=== PATIENT | male | born 1990 | race Caucasian/White ===

== ENCOUNTER 2025-05-27 16:27 | Inpatient (IN) | payer MEDICAID ==
[~2025-05-27] VITALS: Ht 165.1 cm; Wt 75.0 kg
[2025-05-27 17:02] LABS: PLATELET COUNT (AUTO) 247 K/uL (150-450); RED BLOOD CELL COUNT(AUTO) 4.04 MIL/uL (4.50-5.90); RED CELL DISTRIBUTION WIDTH 12.4 % (11.5-14.5); WHITE BLOOD COUNT (AUTO) 19.1 K/uL (4.5-11.0)
[2025-05-27 17:13] LABS: CALCIUM, TOTAL 8.9 mg/dL (8.8-10.5); CREATININE 0.56 mg/dL (0.60-1.30); GLOMERULAR FILTR. RATE CALC > 60 mL/min (>60); GLUCOSE,RANDOM 114 mg/dL (70-110); SODIUM SERUM 129 mmol/L (136-145); UREA NITROGEN, BLOOD 5 mg/dL (7-18)
[2025-05-27] MEDS: SODIUM CHLORIDE 0.9% 2,250 ML IV ONE (17:26)
[2025-05-27 17:31] LABS: APPEARANCE,URINE CLEAR (CLEAR); GLUCOSE, URINE (UA) NEGATIVE (NEGATIVE); LEUKOCYTE ESTERASE ,URINE NEGATIVE (NEGATIVE); NITRATE,URINE NEGATIVE (NEGATIVE); OCCULT BLOOD,URINE NEGATIVE (NEGATIVE); SPECIFIC GRAVITIY, URINE 1.012 (1.003-1.030)
[2025-05-27 17:38] LABS: ASPARTATE AMINOTRANSFERASE 41 U/L (15-37); TOTAL PROTEIN, SERUM 8.5 g/dL (6.4-8.2)
[2025-05-27 17:40] LABS: TROPONIN I-HIGH SENSITIVITY 4 ng/L (<76)
[2025-05-27] MEDS ORDERED: SODIUM CHLORIDE 0.9% 100 ML ONE (17:59)
[2025-05-27] MEDS ORDERED: 0.9% SODIUM CHLORIDE 10 ML SYRINGE IVP ONE (17:59)
[2025-05-27] MEDS ORDERED: IOHEXOL 350 MG/ML 100 ML VIAL ONE (17:59)
[2025-05-27 18:06] LABS: INFLUENZA TYPE A NEGATIVE FOR TYPE A (NEGATIVE); INFLUENZA TYPE B NEGATIVE FOR TYPE B (NEGATIVE)
[2025-05-27] MEDS: ONDANSETRON HCL 4 MG/2 ML VIAL IVP ONE (18:12)
[2025-05-27] MEDS: KETOROLAC TROMETHAMINE 30 MG/ML VIAL IVP ONE (18:12)
[2025-05-27] MEDS: ACETAMINOPHEN 1000 MG/ISO-OSM 100 ML IV ONE (18:13)
[2025-05-27 18:14] LABS: LACTIC ACID 1.0 mmol/L (0.4-2.0)
[2025-05-27] MEDS ORDERED: SODIUM CHLORIDE 0.9% 250 ML IV ONE (20:27)
[2025-05-27] MEDS: CefTRIAXone 1 GM/DEXTROSE 50 ML IV ONE (20:28)
[2025-05-27] MEDS: MetroNIDAZOLE 500 MG/NACL 100 ML IV ONE (20:47)
[2025-05-27] MEDS ORDERED: GADOTERATE MEGLUMINE 10 MMOL/20 ML VIAL IVP ONE (21:02)
[2025-05-27] MEDS ORDERED: BISACODYL 10 MG RECTAL RECTAL SUPPOSITORY PR PRN (21:15)
[2025-05-27] MEDS ORDERED: ONDANSETRON HCL 4 MG/2 ML VIAL IVP PRN (21:15)
[2025-05-27] MEDS ORDERED: MAGNESIUM HYDROXIDE SUSPENSION 30 ML UDCUP PO PRN (21:15)
[2025-05-27] MEDS ORDERED: ZOLPIDEM TARTRATE 5 MG TABLET PO PRN (21:15)
[2025-05-27] MEDS ORDERED: MORPHINE SULFATE 4 MG/ML SYRINGE IVP PRN (21:15)
[2025-05-27] MEDS: DOXYCYCLINE HYCLATE 100 MG in DEXTROSE 5%-WATER 100 ML IV ONE (22:29)
[2025-05-27] MEDS: ACETAMINOPHEN 325 MG TABLET PO PRN (22:33)
[2025-05-27] MEDS: SODIUM CHLORIDE 0.9% 1,000 ML IV ONE (22:34)
[2025-05-27] MEDS: HEPARIN SODIUM,PORCINE 5,000 UNITS/ML VIAL SQ SCH (23:38)
[2025-05-28] VITALS (7 sets, daily range): BP systolic 100–140; BP diastolic 52–86; PULSE 93–116; RESP 17–19; TEMP 98.8–103.1; O2SAT 97–99
[2025-05-28] MEDS: PIPERACILLIN/TAZO 3.375 GM/D5W 50 ML IV SCH (05:17)
[2025-05-28 05:20] LABS: PLATELET COUNT (AUTO) 227 K/uL (150-450); RED BLOOD CELL COUNT(AUTO) 3.82 MIL/uL (4.50-5.90); RED CELL DISTRIBUTION WIDTH 12.3 % (11.5-14.5); WHITE BLOOD COUNT (AUTO) 15.9 K/uL (4.5-11.0)
[2025-05-28 05:28] LABS: CALCIUM, TOTAL 7.8 mg/dL (8.8-10.5); CREATININE 0.66 mg/dL (0.60-1.30); GLOMERULAR FILTR. RATE CALC > 60 mL/min (>60); GLUCOSE,RANDOM 100 mg/dL (70-110); SODIUM SERUM 133 mmol/L (136-145); UREA NITROGEN, BLOOD 6 mg/dL (7-18)
[2025-05-28] MEDS: DOCUSATE SODIUM 100 MG CAPSULE PO SCH (09:00)
[2025-05-28] MEDS: PANTOPRAZOLE SODIUM 40 MG DR TABLET PO SCH (09:00)
[2025-05-28] MEDS ORDERED: FentaNYL CITRATE PF 100 MCG/2 ML VIAL ONE (09:18)
[2025-05-28] MEDS ORDERED: LIDOCAINE/PF 1% 30 ML VIAL ONE (09:18)
[2025-05-28] MEDS ORDERED: MIDAZOLAM HCL 2 MG/2 ML VIAL ONE (09:18)
[2025-05-28] MEDS ORDERED: FentaNYL CITRATE PF 100 MCG/2 ML VIAL IVP ONE ×2 (10:00)
[2025-05-28] MEDS ORDERED: MIDAZOLAM HCL 2 MG/2 ML VIAL IVP ONE ×2 (10:00)
[2025-05-28 11:26] LABS: SPECIMENTYPE,BODY FLUID ASPV
[2025-05-28 13:12] LABS: APPEARANCE,SPUN,BODY FLUID CLOUDY (CLEAR); APPEARANCE,UNSPUN,BODY FLUID TURBID (CLEAR)
[2025-05-28 13:13] LABS: BASOPHILS,BODY FLUID 0 %; BODY FLUID RBC 5000.0 /cu. mm.; COLOR,BODY FLUID BROWN (LT YELLOW); EOSINOPHILS,BF (ANAL) 0 %; LYMPHOCYTES,BODY FLUID 0 %; MONOCYTES,BODY FLUID 0 %; NEUTROPHILS,BODY FLUID 100 %; TOTAL VOLUME,BODY FLUID 0.5 mL; WBC, BODY FLUID 21188 /cu. mm.
[2025-05-28 14:34] LABS: APPEARANCE,URINE CLEAR (CLEAR); GLUCOSE, URINE (UA) NEGATIVE (NEGATIVE); LEUKOCYTE ESTERASE ,URINE NEGATIVE (NEGATIVE); NITRATE,URINE NEGATIVE (NEGATIVE); OCCULT BLOOD,URINE NEGATIVE (NEGATIVE); SPECIFIC GRAVITIY, URINE 1.012 (1.003-1.030)
[2025-05-28] MEDS: ACETAMINOPHEN 500 MG/ISO-OSM 50 ML IV ONE (17:07)
[2025-05-28] MEDS ORDERED: SODIUM CHLORIDE 0.9% 500 ML IV ONE (17:09)
[2025-05-29 03:19] VITALS: BP 111/70; PULSE 81; RESP 18; TEMP 99; O2SAT 100
[2025-05-29] MEDS ORDERED: SODIUM CHLORIDE 0.9% 500 ML IV ONE (04:55)
[2025-05-29 06:46] LABS: PLATELET COUNT (AUTO) 213 K/uL (150-450); RED BLOOD CELL COUNT(AUTO) 3.77 MIL/uL (4.50-5.90); RED CELL DISTRIBUTION WIDTH 12.6 % (11.5-14.5); WHITE BLOOD COUNT (AUTO) 9.0 K/uL (4.5-11.0)
[2025-05-29 06:47] LABS: CALCIUM, TOTAL 8.2 mg/dL (8.8-10.5); CREATININE 0.57 mg/dL (0.60-1.30); GLOMERULAR FILTR. RATE CALC > 60 mL/min (>60); GLUCOSE,RANDOM 104 mg/dL (70-110); SODIUM SERUM 135 mmol/L (136-145); UREA NITROGEN, BLOOD 6 mg/dL (7-18)
[2025-05-29 08:22] VITALS: BP 109/73; PULSE 87; RESP 17; TEMP 98.4; O2SAT 98
[2025-05-29 12:16] VITALS: BP 113/80; PULSE 90; RESP 17; TEMP 98.6; O2SAT 100
[2025-05-29 15:51] VITALS: BP 115/78; PULSE 94; RESP 17; TEMP 99; O2SAT 98
[2025-05-29 20:14] VITALS: BP 119/79; PULSE 90; RESP 17; TEMP 98.6; O2SAT 99
[2025-05-29 21:51] VITALS: BP 120/79; PULSE 85; RESP 18; TEMP 99.3; O2SAT 100
[2025-05-29] MEDS ORDERED: SODIUM CHLORIDE 0.9% 250 ML IV ONE (22:32)
[2025-05-30] MEDS: HYDROCODONE/ACETAMINOPHEN 5-325 MG TABLET PO PRN (03:00)
[2025-05-30 04:09] VITALS: BP 104/69; PULSE 87; RESP 18; TEMP 99.5; O2SAT 97
[2025-05-30 07:29] LABS: PLATELET COUNT (AUTO) 250 K/uL (150-450); RED BLOOD CELL COUNT(AUTO) 3.87 MIL/uL (4.50-5.90); RED CELL DISTRIBUTION WIDTH 12.5 % (11.5-14.5); WHITE BLOOD COUNT (AUTO) 9.2 K/uL (4.5-11.0)
[2025-05-30 07:38] LABS: CALCIUM, TOTAL 8.5 mg/dL (8.8-10.5); CREATININE 0.62 mg/dL (0.60-1.30); GLOMERULAR FILTR. RATE CALC > 60 mL/min (>60); GLUCOSE,RANDOM 114 mg/dL (70-110); SODIUM SERUM 136 mmol/L (136-145); UREA NITROGEN, BLOOD 8 mg/dL (7-18)
[2025-05-30 08:16] VITALS: BP 107/72; PULSE 68; RESP 16; TEMP 97.9; O2SAT 100
[2025-05-30 15:50] VITALS: BP 108/75; PULSE 82; RESP 17; TEMP 98.6; O2SAT 100
[2025-05-30 20:00] VITALS: BP 108/71; PULSE 81; RESP 18; TEMP 98.6; O2SAT 96
[2025-05-31 04:00] VITALS: BP 118/71; PULSE 75; RESP 18; TEMP 98.1; O2SAT 97
[2025-05-31] MEDS ORDERED: LEVO750T68 PO (07:39)
[2025-05-31 08:18] VITALS: BP 96/58; PULSE 75; RESP 17; TEMP 98.4; O2SAT 98
[2025-05-31 19:41] VITALS: BP 114/73; PULSE 78; RESP 18; TEMP 98.4; O2SAT 98
[2025-06-01 04:00] VITALS: BP 104/67; PULSE 71; RESP 18; TEMP 98.4; O2SAT 99
[2025-06-01 08:00] VITALS: BP 107/57; PULSE 75; RESP 19; TEMP 98.4; O2SAT 98
[2025-06-01] MEDS ORDERED: SODIUM CHLORIDE 0.9% 250 ML IV ONE (11:54)
[2025-06-01 16:00] VITALS: BP 113/78; PULSE 78; RESP 20; TEMP 98.4; O2SAT 100
[2025-06-01] MEDS ORDERED: CefTRIAXone SODIUM 2 GM in DEXTROSE 5%-WATER 50 ML IV SCH (18:00)
== END 2025-06-01 16:18 | disposition home or self-care (01) | DRG 720 ==
LOC: EMS 16:27 → EDH 21:09 → 5S 05-28 03:23 → 4E 05-29 21:37
PROVIDERS: ADMIT Internal Medicine; ATTEND Internal Medicine
PROC: 0T913ZZ Drainage of Left Kidney, Percutaneous Approach (ICD-10-PCS; principal; 2025-05-28)
DX: A41.9 Sepsis, unspecified organism (principal); N15.1 Renal and perinephric abscess; N12 Tubulo-interstitial nephritis, not specified as acute or chronic; I49.9 Cardiac arrhythmia, unspecified; N28.1 Cyst of kidney, acquired
CPT/HCPCS: 71045; 74177; 74183; 76705; 77012; 80048; 80076; 81003; 83605; 83880; 84145; 84484; 85025; 85610; 85730; 86592; 87040; 87070; 87075; 87186; 87205; 87389; 87491; 87591; 87804; 89051; 93005; 99291; G0378; J0131; J0696; J1644; J1885; J2250; J2405; J2543; J3010; J3490; J7030; J7040; J7050; J7060; 36415-L1; 36415-TC